=== PATIENT | female | born 1935 | race Caucasian/White ===

== ENCOUNTER 2018-12-17 09:36 | Emergency (ER) | payer OTHER ==
[~2018-12-17] VITALS: Ht 157.5 cm; Wt 62.6 kg
[~2018-12-17 09:36] MED LIST: CATAFLAM50 MG
[2018-12-17] MEDS ORDERED: ELIQUIS2.5 MG (10:04)
== END 2018-12-17 13:54 | disposition home or self-care (01) ==
LOC: ER 09:36
DX: S40.012A Contusion of left shoulder, initial encounter (principal); S60.212A Contusion of left wrist, initial encounter; M06.212 Rheumatoid bursitis, left shoulder; M19.042 Primary osteoarthritis, left hand; M19.032 Primary osteoarthritis, left wrist; W10.8XXA Fall (on) (from) other stairs and steps, initial encounter; Y93.89 Activity, other specified; Y92.018 Other place in single-family (private) house as the place of occurrence of the external cause; Y99.8 Other external cause status

== ENCOUNTER 2019-03-07 09:55 | Emergency (ER) | payer OTHER ==
[~2019-03-07] VITALS: Ht 157.5 cm; Wt 61.2 kg
[~2019-03-07 09:55] MED LIST changes: +ELIQUIS2.5 MG
== END 2019-03-07 12:15 | disposition home or self-care (01) ==
LOC: ER 09:55
DX: S01.82XA Laceration with foreign body of other part of head, initial encounter (principal); S20.222A Contusion of left back wall of thorax, initial encounter; S20.221A Contusion of right back wall of thorax, initial encounter; W26.8XXA Contact with other sharp object(s), not elsewhere classified, initial encounter; Y93.89 Activity, other specified; Y92.018 Other place in single-family (private) house as the place of occurrence of the external cause; Y99.8 Other external cause status

== ENCOUNTER 2019-03-09 14:50 | Emergency (ER) | payer OTHER ==
[~2019-03-09] VITALS: Ht 152.4 cm; Wt 65.8 kg
== END 2019-03-09 17:04 | disposition home or self-care (01) ==
LOC: ER 14:50
DX: S20.222D Contusion of left back wall of thorax, subsequent encounter (principal); M54.89 Other dorsalgia; S20.221D Contusion of right back wall of thorax, subsequent encounter; W22.8XXD Striking against or struck by other objects, subsequent encounter

== ENCOUNTER 2019-12-27 11:59 | Outpatient (CLI) | payer OTHER | END 2019-12-27 12:01 | disposition home or self-care (01) | LOC: RAD 11:59 | DX: M25.561 Pain in right knee (principal); M25.562 Pain in left knee ==

== ENCOUNTER 2020-04-19 08:55 | Outpatient (CLI) | payer OTHER | END 2020-04-19 09:01 | disposition home or self-care (01) | LOC: LAB 08:55 | PROVIDERS: ATTEND Orthopaedic Surgery | DX: E21.2 Other hyperparathyroidism (principal); E55.9 Vitamin D deficiency, unspecified; M85.88 Other specified disorders of bone density and structure, other site; M81.8 Other osteoporosis without current pathological fracture; E56.1 Deficiency of vitamin K ==

== ENCOUNTER 2021-04-27 09:29 | Outpatient (CLI) | payer OTHER | END 2021-04-27 09:36 | disposition home or self-care (01) | LOC: RX STUDY 09:29 | PROVIDERS: ATTEND Specialist | DX: R13.10 Dysphagia, unspecified (principal) ==

== ENCOUNTER 2021-10-22 09:00 | Outpatient (CLI) | payer OTHER | END 2021-10-22 09:15 | disposition home or self-care (01) | LOC: PPH VACUNA 09:00 | PROVIDERS: ATTEND Emergency Medicine Pediatric Emergency Medicine | DX: Z23 Encounter for immunization (principal) ==

== ENCOUNTER 2022-03-03 10:39 | Emergency (ER) | payer OTHER ==
[~2022-03-03] VITALS: Ht 157.5 cm; Wt 64.4 kg
[2022-03-03] MEDS ORDERED: CARTIA XT180 MG (10:50)
[2022-03-03] MEDS ORDERED: MEDROLPACK PO (11:23)
== END 2022-03-03 11:40 | disposition home or self-care (01) ==
LOC: ER 10:39
DX: M54.50 Low back pain, unspecified (principal); I49.9 Cardiac arrhythmia, unspecified; Z95.0 Presence of cardiac pacemaker